=== PATIENT | female | born 1990 | race Caucasian/White ===

== ENCOUNTER 2018-08-26 10:36 | Emergency (ER) | payer OTHER ==
[~2018-08-26] VITALS: Ht 162.6 cm; Wt 56.9 kg
[2018-08-26 11:01] VITALS: BP 111/63; Ht 162.6 cm; Wt 56.9 kg
== END 2018-08-26 11:40 | disposition home or self-care (01) ==
LOC: ED 10:36
DX: S09.8XXD Other specified injuries of head, subsequent encounter (principal); M54.2 Cervicalgia; R51 Headache; F17.210 Nicotine dependence, cigarettes, uncomplicated; X58.XXXD Exposure to other specified factors, subsequent encounter
CPT/HCPCS: 99406; J1885